=== PATIENT | male | born 1955 | race Caucasian/White ===

== ENCOUNTER 2016-09-11 16:41 | Inpatient (IN) | payer OTHER ==
[~2016-09-11] VITALS: Ht 180.3 cm; Wt 181.2 kg
[2016-09-11 18:07] LABS: HEMATOCRIT 37.2 % (38.0-50.0); MCH 29.6 PG (29.0-34.0); MCHC 33.6 G/DL (30.0-36.0); MCV 87.9 FL (86-99); MEAN PLAT.VOLUME 11.2 uM^3 (9.0-12.4); PLATELET COUNT 229 K/uL (156-360); RBC DIS.WIDTH-CV 13.3 % (11.8-14.6); RBC DIS.WIDTH-SD 42.2 % (39-53); RED BLOOD COUNT 4.23 M/uL (4.00-5.50); WHITE BLOOD COUNT 13.5 K/uL (4.1-10.2)
[2016-09-11 18:24] LABS: CHLORIDE 97 mEq/L (99-109); POTASSIUM 4.1 mEq/L (3.7-5.4); SODIUM 134 mEq/L (136-147)
[2016-09-11 18:26] LABS: GLUCOSE 129 mg/dL (70-99)
[2016-09-11 18:27] LABS: ANION GAP 19 MEQ/L (2-14)
[2016-09-11 18:28] LABS: TOTAL BILIRUBIN 0.5 mg/dL (0.0-1.0)
[2016-09-11 18:30] LABS: ALKALINE PHOSPHATASE 81 IU/L (3-129); GFR ESTIMATE (CALCULATED) 6 mL/min/
[2016-09-11 18:33] LABS: UREA NITROGEN (BUN) 109 mg/dL (9-23)
[2016-09-11] MEDS ORDERED: ALDACTONE25 MG PO (21:20)
[2016-09-11] MEDS ORDERED: LASIX40 MG PO (21:20)
[2016-09-11] MEDS ORDERED: ZESTRIL40 MG PO (21:20)
[2016-09-11] MEDS ORDERED: COREG25 M1 PO (21:20)
[2016-09-11] MEDS ORDERED: ASPIR 8181 M1 PO (21:21)
[2016-09-11 21:45] LABS: TROP-I INTERPRETATION NEGATIVE; TROPONIN-I < 0.01 ng/mL (0.0-0.30)
[2016-09-12] VITALS (22 sets, daily range): BP systolic 97–127; BP diastolic 31–53
[2016-09-12 01:46] LABS: BILIRUBIN SMALL; BLOOD NEGATIVE; COLOR DK YELLOW ((YELLOW)); GLUCOSE (STRIP) NEGATIVE; KETONES TRACE; LEUKOCYTES NEGATIVE; NITRITE NEGATIVE; PROTEIN (STRIP) 30; SPECIFIC GRAVITY 1.028 (1.000-1.030); UROBILINOGEN 0.2 MG/DL (0.2-1.0)
[2016-09-12 01:48] LABS: ADD MIUA? NO; UCUL ADDED? NO
[2016-09-12 02:51] LABS: INTER. NORMALIZED RATIO 1.1; PROTHROMBIN TIME 11.3 (9.2-11.2); PTT 21.7 (25-32)
[2016-09-12 05:07] LABS: METH RESISTANT S AUREUS PCR NEGATIVE (NEGATIVE)
[2016-09-12 05:18] LABS: PROBE CHECK PASS; SPECIMEN PROCESSING CONTROL PASS
[2016-09-12 05:47] LABS: HEMATOCRIT 33.6 % (38.0-50.0); MCH 29.2 PG (29.0-34.0); MCHC 32.4 G/DL (30.0-36.0); MCV 90.1 FL (86-99); PLATELET COUNT 197 K/uL (156-360); RBC DIS.WIDTH-CV 13.6 % (11.8-14.6); RBC DIS.WIDTH-SD 44.9 % (39-53); RED BLOOD COUNT 3.73 M/uL (4.00-5.50); WHITE BLOOD COUNT 10.3 K/uL (4.1-10.2)
[2016-09-12 06:28] LABS: ANION GAP 16 MEQ/L (2-14); CHLORIDE 104 MEQ/L (99-109); GLUCOSE 101 mg/dL (70-99); SAMPLE HEMOLYSIS CHECK 0; SAMPLE ICTERIC CHECK 0; SAMPLE LIPEMIA CHECK 0; SODIUM 138 MEQ/L (136-147); UREA NITROGEN (BUN) 99 mg/dL (9-23)
[2016-09-12 06:29] LABS: GFR ESTIMATE (CALCULATED) 8 mL/min/
[2016-09-12 16:01] LABS: UR CREATININE CONCENTRATION 96.8 MG/DL
[2016-09-13] VITALS (24 sets, daily range): BP systolic 109–149; BP diastolic 43–70
[2016-09-13 06:10] LABS: EOSINOPHIL (%) 4.6 % (0-5); EOSINOPHIL COUNT 0.4 K/uL (0-0.3); HEMATOCRIT 36.1 % (38.0-50.0); IMMATURE GRANULOCYTE (%) 1.6 % (0.0-0.7); IMMATURE GRANULOCYTE COUNT 0.1 K/uL; LYMPHOCYTE COUNT 0.7 K/uL (1.0-2.8); MCH 30.2 PG (29.0-34.0); MCHC 33.2 G/DL (30.0-36.0); MCV 90.7 FL (86-99); MEAN PLAT.VOLUME 10.6 uM^3 (9.0-12.4); MONOCYTE (%) 7.3 % (3-12); MONOCYTE COUNT 0.6 K/uL (0-0.8); NEUTROPHIL COUNT 6.1 K/uL (1.8-6.4); PLATELET COUNT 224 K/uL (156-360); RBC DIS.WIDTH-CV 13.4 % (11.8-14.6); RBC DIS.WIDTH-SD 45.1 % (39-53); RED BLOOD COUNT 3.98 M/uL (4.00-5.50)
[2016-09-13 06:42] LABS: ANION GAP 11 MEQ/L (2-14); CHLORIDE 111 MEQ/L (99-109); GLUCOSE 87 mg/dL (70-99); MAGNESIUM 2.2 mg/dl (1.3-2.7); POTASSIUM 4.4 MEQ/L (3.7-5.4); SAMPLE HEMOLYSIS CHECK 0; SAMPLE ICTERIC CHECK 0; SAMPLE LIPEMIA CHECK 0; SODIUM 143 MEQ/L (136-147); UREA NITROGEN (BUN) 77 mg/dL (9-23)
[2016-09-13 06:43] LABS: GFR ESTIMATE (CALCULATED) 26 mL/min/
[2016-09-14] VITALS (14 sets, daily range): BP systolic 126–172; BP diastolic 56–79
[2016-09-14 05:52] LABS: HEMATOCRIT 36.1 % (38.0-50.0); MCH 29.9 PG (29.0-34.0); MCHC 32.7 G/DL (30.0-36.0); MCV 91.6 FL (86-99); MEAN PLAT.VOLUME 10.8 uM^3 (9.0-12.4); PLATELET COUNT 244 K/uL (156-360); RBC DIS.WIDTH-CV 13.4 % (11.8-14.6); RED BLOOD COUNT 3.94 M/uL (4.00-5.50); WHITE BLOOD COUNT 7.6 K/uL (4.1-10.2)
[2016-09-14 06:07] LABS: ANION GAP 10 MEQ/L (2-14); CHLORIDE 109 MEQ/L (99-109); GFR ESTIMATE (CALCULATED) > 59 mL/min/; GLUCOSE 87 mg/dL (70-99); POTASSIUM 4.2 MEQ/L (3.7-5.4); SAMPLE HEMOLYSIS CHECK 0; SAMPLE ICTERIC CHECK 0; SAMPLE LIPEMIA CHECK 0; SODIUM 144 MEQ/L (136-147); UREA NITROGEN (BUN) 46 mg/dL (9-23)
[2016-09-14 06:26] LABS: EOSINOPHIL (%) 4.7 % (0-5); EOSINOPHIL COUNT 0.4 K/uL (0-0.3); IMMATURE GRANULOCYTE (%) 3.7 % (0.0-0.7); IMMATURE GRANULOCYTE COUNT 0.3 K/uL; LYMPHOCYTE COUNT 0.9 K/uL (1.0-2.8); MONOCYTE (%) 7.6 % (3-12); MONOCYTE COUNT 0.6 K/uL (0-0.8); NEUTROPHIL (%) 72.1 % (45-76); NEUTROPHIL COUNT 5.5 K/uL (1.8-6.4)
[2016-09-14 06:58] LABS: HEMATOLOGY COMMENT 1 SMEAR COMPATIBLE; USER ID CL
[2016-09-15 04:10] VITALS: BP 150/75
[2016-09-15 06:18] LABS: MCH 29.8 PG (29.0-34.0); MCHC 32.5 G/DL (30.0-36.0); MCV 91.8 FL (86-99); MEAN PLAT.VOLUME 10.4 uM^3 (9.0-12.4); PLATELET COUNT 245 K/uL (156-360); RBC DIS.WIDTH-CV 13.3 % (11.8-14.6); RBC DIS.WIDTH-SD 44.5 % (39-53); RED BLOOD COUNT 3.92 M/uL (4.00-5.50); WHITE BLOOD COUNT 7.6 K/uL (4.1-10.2)
[2016-09-15 06:45] LABS: ANION GAP 8 MEQ/L (2-14); CHLORIDE 109 MEQ/L (99-109); GFR ESTIMATE (CALCULATED) > 59 mL/min/; GLUCOSE 103 mg/dL (70-99); MAGNESIUM 1.8 mg/dl (1.3-2.7); SAMPLE HEMOLYSIS CHECK 0; SAMPLE ICTERIC CHECK 0; SAMPLE LIPEMIA CHECK 0; SODIUM 144 MEQ/L (136-147)
[2016-09-15 06:49] LABS: UREA NITROGEN (BUN) 21 mg/dL (9-23)
[2016-09-15 07:04] LABS: ABS NEUTROPHIL COUNT 5.23; ANISOCYTOSIS OCC; EOSINOPHIL (%) 5.8 % (0-5); EOSINOPHIL ABS CT 0.23; EOSINOPHIL COUNT 0.4 K/uL (0-0.3); IMMATURE GRANULOCYTE (%) 5.4 % (0.0-0.7); IMMATURE GRANULOCYTE COUNT 0.4 K/uL; LYMPHOCYTE COUNT 1.1 K/uL (1.0-2.8); MONOCYTE (%) 5.5 % (3-12); MONOCYTE COUNT 0.4 K/uL (0-0.8); NEUTROPHIL (%) 68.7 % (45-76); NEUTROPHIL COUNT 5.2 K/uL (1.8-6.4); PLAT.SUFFICIENCY ADEQUATE; USER ID SDF
[2016-09-15 07:57] VITALS: BP 144/80
[2016-09-15 11:55] VITALS: BP 148/82
[2016-09-15 16:01] VITALS: BP 134/84
[2016-09-15 19:22] VITALS: BP 145/80
[2016-09-15 23:32] VITALS: BP 162/79
[2016-09-16 03:20] VITALS: BP 165/91
[2016-09-16 06:20] LABS: HEMATOCRIT 37.3 % (38.0-50.0); MCH 28.9 PG (29.0-34.0); MCHC 31.4 G/DL (30.0-36.0); MCV 92.1 FL (86-99); MEAN PLAT.VOLUME 10.3 uM^3 (9.0-12.4); PLATELET COUNT 254 K/uL (156-360); RBC DIS.WIDTH-CV 13.1 % (11.8-14.6); RBC DIS.WIDTH-SD 44.3 % (39-53); RED BLOOD COUNT 4.05 M/uL (4.00-5.50); WHITE BLOOD COUNT 8.5 K/uL (4.1-10.2)
[2016-09-16 06:43] LABS: ANION GAP 7 MEQ/L (2-14); CHLORIDE 108 MEQ/L (99-109); GFR ESTIMATE (CALCULATED) > 59 mL/min/; GLUCOSE 98 mg/dL (70-99); MAGNESIUM 1.7 mg/dl (1.3-2.7); SAMPLE HEMOLYSIS CHECK 0; SAMPLE ICTERIC CHECK 0; SAMPLE LIPEMIA CHECK 0; SODIUM 143 MEQ/L (136-147); UREA NITROGEN (BUN) 12 mg/dL (9-23)
[2016-09-16 07:41] LABS: ABS NEUTROPHIL COUNT 7.08; EOSINOPHIL ABS CT 0.26; PLAT.SUFFICIENCY ADEQUATE; USER ID STC
[2016-09-16 08:30] VITALS: BP 160/87
[2016-09-16] MEDS ORDERED: MAXIPIME2 GM IV ×2 (08:58→09:11)
[2016-09-16 12:08] VITALS: BP 156/76
[2016-09-16 13:59] LABS: DELETE MACHINE DIFF? YES
[2016-09-16 15:14] VITALS: BP 152/79
== END 2016-09-16 18:32 | disposition home health service (06) | DRG 871 ==
LOC: EME 16:41 → 4EAST 09-12 01:31 → EDOF 09-12 01:31 → 4WEST 09-12 01:31 → 4EAST 09-14 11:48
PROVIDERS: Emergency Medicine; Internal Medicine Critical Care Medicine; Internal Medicine Nephrology; Physician Assistant Surgical; Surgery
PROC: 05HM33Z Insertion of Infusion Device into Right Internal Jugular Vein, Percutaneous Approach (ICD-10-PCS; principal; 2016-09-12)
DX: A41.9 Sepsis, unspecified organism (principal); R65.21 Severe sepsis with septic shock; K57.20 Diverticulitis of large intestine with perforation and abscess without bleeding; N17.9 Acute kidney failure, unspecified; E66.01 Morbid (severe) obesity due to excess calories; I50.9 Heart failure, unspecified; I11.0 Hypertensive heart disease with heart failure; I95.9 Hypotension, unspecified; E86.0 Dehydration
CPT/HCPCS: 71010; 74020; 74176; 76937; 80048; 80048 91; 80053; 81003; 82570; 83605; 83735; 84100; 84156; 84300; 84484; 85025; 85027; 85610; 85730; 86850; 86900; 86901; 87040; 87641; 93005; 99281; 99285; J0692; J1644; J2543; J3370; J7030; J7050; J7120; S0028